=== PATIENT | male | born 1970 | race Caucasian/White ===

== ENCOUNTER 2018-07-14 23:59 | Emergency (ER) | payer MEDICAID ==
[~2018-07-14] VITALS: Ht 175.3 cm; Wt 113.0 kg
[2018-07-15 01:13] LABS: *AMPHETAMINES SCREEN URINE PRESUMTIVE POSITIVE (NEGATIVE); *BARBITURATES SCREEN URINE NEGATIVE (NEGATIVE); *COCAINE SCREEN URINE PRESUMTIVE POSITIVE (NEGATIVE); CANNABINOID URINE SCREEN PRESUMTIVE POSITIVE (NEGATIVE)
[2018-07-15 01:14] LABS: *BENZODIAZEPINES SCREEN URINE NEGATIVE (NEGATIVE); METHADONE URINE SCREEN NEGATIVE (NEGATIVE); OPIATES URINE SCREEN NEGATIVE (NEGATIVE); PHENCYCLIDINE URINE SCREEN NEGATIVE (NEGATIVE)
[2018-07-15] MEDS ORDERED: CLONIDINE 0.1MG TABLET PO ONE (02:15)
[2018-07-15] MEDS ORDERED: LORAZEPAM 1MG TABLET PO ONE (02:15)
[2018-07-15 02:50] VITALS: BP 176/124
== END 2018-07-15 02:55 | disposition home or self-care (01) ==
LOC: ER 23:59
DX: I10 Essential (primary) hypertension (principal); F14.151 Cocaine abuse with cocaine-induced psychotic disorder with hallucinations; F14.180 Cocaine abuse with cocaine-induced anxiety disorder; F15.10 Other stimulant abuse, uncomplicated; F12.10 Cannabis abuse, uncomplicated; F31.9 Bipolar disorder, unspecified; F17.210 Nicotine dependence, cigarettes, uncomplicated
CPT/HCPCS: 80305; 99283; 99284